=== PATIENT | female | born 1980 | race Caucasian/White ===

== ENCOUNTER 2018-08-22 22:08 | Emergency (ER) | payer OTHER ==
[~2018-08-22] VITALS: Ht 149.9 cm; Wt 79.0 kg
[~2018-08-22 22:08] MED LIST: LINE600T32 PO; NO HOME MEDS
[2018-08-22 22:36] VITALS: BP 162/83
[2018-08-22 23:29] LABS: URINE HCG NEGATIVE (NEG)
[2018-08-22 23:35] LABS: COLOR,URINE YELLOW (Yellow); GLUCOSE, URINE NEGATIVE (Neg); KETONES,URINE NEGATIVE (Neg); LEUKOCYTE ESTERASE ,URINE NEGATIVE (Neg); NITRITES, URINE NEGATIVE (Neg); OCCULT BLOOD,URINE TRACE-INTACT (Neg); PROTEIN,URINE TRACE mg/dl (Neg); UROBILINOGEN,URINE 0.2 E.U/dL (0.2-1.0)
[2018-08-22 23:40] LABS: CLARITY,URINE SLIGHTLY CLOUDY (Clear); UA COLLECTION TYPE CLN CATCH MIDSTREAM
[2018-08-22 23:41] LABS: BACTERIA,URINE FEW /HPF (Neg); CAL OXALATE CRYSTALS FEW /HPF (NEGATIVE); MUCUS STRANDS MODERATE /LPF (Neg); RBC,URINE 0-2 /HPF (0-2); SQUAMOUS EPITHELIAL CELL,UR FEW /LPF (FEW); WBC,URINE 0-4 /HPF (0-4)
[2018-08-23] MEDS ORDERED: DOXYCYCLINE 100MG CAPSULE PO STA (00:08)
[2018-08-23] MEDS ORDERED: ondansetron 4mg rapidly disintigrating tab PO ONE (00:10)
[2018-08-23] MEDS ORDERED: CefTRIAXone 1000mg IM Kit (w/lidocaine diluent) IM ONE (00:10)
[2018-08-23] MEDS ORDERED: azithromycin 250mg tablet PO ONE (00:10)
[2018-08-23] MEDS ORDERED: erythromycin ophthalmic ointment 1gm tube LEFTEYE ONE (00:15)
[2018-08-23] MEDS ORDERED: DOXY100C43 PO (00:15)
[2018-08-23] MEDS ORDERED: ERYT1OIN6 LEFTEYE (00:15)
[2018-08-23] MEDS ORDERED: acetaminophen 325mg tablet PO ONE (01:15)
== END 2018-08-23 01:23 | disposition home or self-care (01) ==
LOC: ER 22:09
DX: H01.005 Unspecified blepharitis left lower eyelid (principal); H00.15 Chalazion left lower eyelid; H00.035 Abscess of left lower eyelid; H11.422 Conjunctival edema, left eye; E11.9 Type 2 diabetes mellitus without complications; Z20.2 Contact with and (suspected) exposure to infections with a predominantly sexual mode of transmission; Z79.2 Long term (current) use of antibiotics; Z79.899 Other long term (current) drug therapy; Z88.6 Allergy status to analgesic agent; Z86.14 Personal history of Methicillin resistant Staphylococcus aureus infection
CPT/HCPCS: 81001; 81025; 96372; 99284; J0696

== ENCOUNTER 2018-08-23 21:03 | Emergency (ER) | payer OTHER ==
[~2018-08-23] VITALS: Ht 149.9 cm; Wt 79.0 kg
[~2018-08-23 21:03] MED LIST changes: +DOXY100C43 PO; +ERYT1OIN6 LEFTEYE
[2018-08-23] MEDS ORDERED: proparacaine 0.5% ophthalmic drops 15ml EACHEYE ONE (22:25)
[2018-08-23] MEDS ORDERED: HYDROcodone/acetaminophen 5mg/325mg tablet PO ONE (22:40)
[2018-08-23 22:54] LABS: BASOPHILS # (AUTO) 0.1 X10'3 (0-0.2); BASOPHILS % (AUTO) 0.6 % (0-1); EOSINOPHILS # (AUTO) 0.3 X10'3 (0-0.9); EOSINOPHILS % (AUTO) 3.6 % (0-6); HEMATOCRIT 37.7 % (35.0-45.0); HEMOGLOBIN 12.6 g/dl (12.0-16.0); LYMPHOCYTES # (AUTO) 1.5 X10'3 (1.1-4.8); LYMPHOCYTES % (AUTO) 16.4 % (21-51); MEAN CORPUSCULAR HEMOGLOBIN 27.5 PG (27.0-31.0); MEAN CORPUSCULAR HGB CONC 33.3 g/dL (33.0-36.5); MEAN CORPUSCULAR VOLUME 82.7 FL (78-98); MEAN PLATELET VOLUME 7.8 FL (7.4-10.4); MONOCYTES # (AUTO) 0.7 X10'3 (0-0.9); MONOCYTES % (AUTO) 7.5 % (2-12); NEUTROPHILS # (AUTO) 6.4 X10'3 (1.8-7.7); NEUTROPHILS % (AUTO) 71.9 % (42-75); PLATELET COUNT 311 X10'3 (140-440); RED BLOOD COUNT 4.56 X10'6 (4.20-5.60); WHITE BLOOD COUNT 8.9 X10'3 (4.5-11.0)
[2018-08-23 23:01] LABS: ALANINE AMINOTRANSFERASE 46 U/L (12-78); ALBUMIN 3.3 G/DL (3.4-5.0); ALBUMIN/GLOBULIN RATIO 0.9 (1.1-1.5); ALKALINE PHOSPHATASE 85 IU/L (46-116); ANION GAP 4 (8-16); ASPARTATE AMINO TRANSFERASE 22 U/L (10-37); BILIRUBIN,TOTAL 0.2 MG/DL (0.1-1.0); BLOOD UREA NITROGEN 9 MG/DL (7-18); BUN/CREATININE RATIO 11.7 (6.6-38.0); CALCIUM 8.8 MG/DL (8.5-10.1); CHLORIDE 104 MMOL/L (99-107); CREATININE 0.77 MG/DL (0.40-0.90); GLUCOSE 107 MG/DL (70-104); POTASSIUM 3.3 MMOL/L (3.5-5.1); SODIUM 137 MMOL/L (135-145); TOTAL CARBON DIOXIDE 28.9 MMOL/L (24-32); eGFR 84 ML/MIN
[2018-08-23] MEDS ORDERED: iohexol 300mg/ml 100ml inj. ONE (23:07)
--- NOTE | 2018-08-24 00:30 | NUR ---
PER PA - PT HAS LEFT HER ROOM AND EXITED THE ER - CHECKED OUTSIDE AND CANNOT FIND PT - SECURITY CALLED. PATIENT HAS IV IN PLACE. WILL CALL [facility] IF WE CAN'T FIND HER IN THE NEXT FEW MINUTES.
[2018-08-24] MEDS ORDERED: DOXYCYCLINE 100MG CAPSULE PO STA (01:04)
[2018-08-24] MEDS ORDERED: ciprofloxacin 0.3% 2.5ml ophthalmic solution LEFTEYE ONE (01:05)
[2018-08-24 01:27] VITALS: BP 138/83
== END 2018-08-24 01:49 | disposition home or self-care (01) ==
LOC: ER 21:03
DX: H00.035 Abscess of left lower eyelid (principal); H11.422 Conjunctival edema, left eye; Z86.14 Personal history of Methicillin resistant Staphylococcus aureus infection; Z88.6 Allergy status to analgesic agent; Z79.899 Other long term (current) drug therapy
CPT/HCPCS: 36415; 70480; 80053; 85025; 99284; Q9967

== ENCOUNTER 2019-03-10 12:20 | Emergency (ER) | payer OTHER ==
[~2019-03-10] VITALS: Ht 149.9 cm; Wt 80.0 kg
[~2019-03-10 12:20] MED LIST changes: -DOXY100C43 PO; -ERYT1OIN6 LEFTEYE; +LINE600T14 PO; -LINE600T32 PO
[2019-03-10] MEDS ORDERED: CefTRIAXone 250MG IM Kit w/LIDOcaine IM ONE (13:10)
[2019-03-10] MEDS ORDERED: CefTRIAXone 250MG inj IM ONE (13:10)
[2019-03-10 13:15] VITALS: BP 148/86
[2019-03-10] MEDS ORDERED: ALBU6.7H9 INH (13:29)
[2019-03-10] MEDS ORDERED: DOXY100C43 PO (13:30)
[2019-03-10 13:39] LABS: CLARITY,URINE SLIGHTLY CLOUDY (Clear); COLOR,URINE YELLOW (Yellow); GLUCOSE, URINE NEGATIVE (Neg); KETONES,URINE NEGATIVE (Neg); LEUKOCYTE ESTERASE ,URINE SMALL (Neg); NITRITES, URINE NEGATIVE (Neg); OCCULT BLOOD,URINE NEGATIVE (Neg); PROTEIN,URINE NEGATIVE (Neg); UROBILINOGEN,URINE 0.2 E.U/dL (0.2-1.0)
[2019-03-10 13:40] LABS: URINE HCG NEGATIVE (NEG)
[2019-03-10 13:47] LABS: UA COLLECTION TYPE VOIDED
[2019-03-10 13:48] LABS: MUCUS STRANDS FEW /LPF (Neg); SQUAMOUS EPITHELIAL CELL,UR MANY /LPF (FEW)
[2019-03-10 13:49] LABS: BACTERIA,URINE 1+ /HPF (Neg); TRICHOMONAS,URINE MOD /HPF (NEGATIVE)
[2019-03-10 13:50] LABS: RBC,URINE 0-2 /HPF (0-2)
== END 2019-03-10 13:58 | disposition home or self-care (01) ==
LOC: ER 12:20
DX: R06.02 Shortness of breath (principal); F17.200 Nicotine dependence, unspecified, uncomplicated; Z20.2 Contact with and (suspected) exposure to infections with a predominantly sexual mode of transmission; Z86.14 Personal history of Methicillin resistant Staphylococcus aureus infection; Z88.6 Allergy status to analgesic agent; Z88.8 Allergy status to other drugs, medicaments and biological substances; Z79.899 Other long term (current) drug therapy
CPT/HCPCS: 36415; 71046; 81001; 81025; 87491; 87591; 96372; 99284; J0696

== ENCOUNTER 2020-08-14 22:02 | Emergency (ER) | payer MEDICAID ==
[~2020-08-14] VITALS: Ht 149.9 cm; Wt 84.1 kg
[~2020-08-14 22:02] MED LIST changes: +ALBU6.7H9 INH
[2020-08-14] MEDS ORDERED: diphenhydrAMINE 50 mg/ml inj IV ONE (23:15)
[2020-08-14] MEDS ORDERED: proCHLORperazine 10 MG/2 ml inj IV ONE (23:15)
[2020-08-14] MEDS ORDERED: ketorolac tromethamine 15mg/ml inj. IV ONE (23:15)
[2020-08-14] MEDS ORDERED: normal saline 1000ml 1,000 ML IV ONE (23:15)
[2020-08-15 01:51] VITALS: BP 133/75
== END 2020-08-15 01:54 | disposition home or self-care (01) ==
LOC: ER 22:03
DX: G43.909 Migraine, unspecified, not intractable, without status migrainosus (principal); R11.0 Nausea; R42 Dizziness and giddiness; H53.8 Other visual disturbances; F17.200 Nicotine dependence, unspecified, uncomplicated; Z86.14 Personal history of Methicillin resistant Staphylococcus aureus infection; Z88.8 Allergy status to other drugs, medicaments and biological substances; Z79.899 Other long term (current) drug therapy
CPT/HCPCS: 96361; 96374; 96375; 99284; J0780; J1200; J1885; J7030

== ENCOUNTER 2020-11-22 19:04 | Emergency (ER) | payer MEDICAID | END 2020-11-22 21:30 | disposition left against medical advice (07) | LOC: ER 19:05 → EEVIPCON 19:05 → ER 21:30 | DX: Z04.81 Encounter for examination and observation of victim following forced sexual exploitation (principal); Z53.21 Procedure and treatment not carried out due to patient leaving prior to being seen by health care provider ==